=== PATIENT | female | born 1965 | race Caucasian/White ===

== ENCOUNTER 2017-01-07 08:20 | Emergency (ER) | payer MEDICARE, MEDICAID ==
[~2017-01-07] VITALS: Ht 172.7 cm; Wt 58.9 kg
[~2017-01-07 08:20] MED LIST: CLIN300C93 PO; EFAV1TAB PO
[2017-01-07] MEDS ORDERED: FAMOTIDINE 20 MG TABLET PO ONE (09:00)
[2017-01-07] MEDS ORDERED: OXYcodone/APAP 5/325MG TABLET PO ONE (09:00)
[2017-01-07] MEDS ORDERED: DIPHENHYDRAMINE 25 MG CAPSULE PO ONE (09:00)
[2017-01-07] MEDS ORDERED: FAMOTIDINE 20 MG TABLET ONE (09:24)
[2017-01-07] MEDS ORDERED: OXYcodone/APAP 5/325MG TABLET ONE (09:24)
[2017-01-07] MEDS ORDERED: DIPHENHYDRAMINE 50 MG CAPSULE ONE (09:24)
[2017-01-07 11:21] VITALS: BP 112/70
== END 2017-01-07 12:31 | disposition home or self-care (01) ==
LOC: ED 08:57
DX: S90.02XA Contusion of left ankle, initial encounter (principal); S90.01XA Contusion of right ankle, initial encounter; I10 Essential (primary) hypertension; F41.1 Generalized anxiety disorder; F17.210 Nicotine dependence, cigarettes, uncomplicated; F15.10 Other stimulant abuse, uncomplicated; Y04.0XXA Assault by unarmed brawl or fight, initial encounter; Y93.89 Activity, other specified; Y92.828 Other wilderness area as the place of occurrence of the external cause; Y99.8 Other external cause status; Z87.01 Personal history of pneumonia (recurrent); Z59.0 Homelessness
CPT/HCPCS: 70450; 93005

== ENCOUNTER 2017-04-11 14:53 | Emergency (ER) | payer MEDICARE, MEDICAID ==
[~2017-04-11] VITALS: Ht 172.7 cm; Wt 52.0 kg
[2017-04-11 14:58] VITALS: BP 138/76
[2017-04-11] MEDS ORDERED: FAMOTIDINE 20 MG TABLET ONE (15:17)
[2017-04-11] MEDS ORDERED: FAMOTIDINE 20 MG TABLET PO ONE (15:30)
[2017-04-11] MEDS ORDERED: IBUPROFEN 200 MG TABLET ONE (16:18)
[2017-04-11] MEDS ORDERED: IBUPROFEN 200 MG TABLET PO ONE (16:30)
== END 2017-04-11 16:40 | disposition home or self-care (01) ==
LOC: ED 16:00
DX: T78.40XA Allergy, unspecified, initial encounter (principal); R21 Rash and other nonspecific skin eruption; L50.9 Urticaria, unspecified; K08.89 Other specified disorders of teeth and supporting structures; I10 Essential (primary) hypertension; F17.200 Nicotine dependence, unspecified, uncomplicated; X58.XXXA Exposure to other specified factors, initial encounter
CPT/HCPCS: 99284; J7512

== ENCOUNTER 2017-04-19 17:46 | Emergency (ER) | payer MEDICARE, MEDICAID ==
[~2017-04-19] VITALS: Ht 172.7 cm; Wt 58.4 kg
[~2017-04-19 17:46] MED LIST changes: +CLIN300C8 PO; -CLIN300C93 PO
[2017-04-19 17:59] VITALS: BP 121/80
== END 2017-04-19 19:50 ==
LOC: ED 19:48
DX: S02.5XXA Fracture of tooth (traumatic), initial encounter for closed fracture (principal); L25.9 Unspecified contact dermatitis, unspecified cause; I10 Essential (primary) hypertension; X58.XXXA Exposure to other specified factors, initial encounter; Y93.89 Activity, other specified; Y92.89 Other specified places as the place of occurrence of the external cause; Y99.8 Other external cause status
CPT/HCPCS: 99283

== ENCOUNTER 2017-09-02 17:52 | Inpatient (IN) | payer MEDICARE, MEDICAID ==
[~2017-09-02] VITALS: Ht 170.2 cm; Wt 54.7 kg
[2017-09-02] MEDS ORDERED: SODIUM CHLORIDE FLUSH 10ML SYR IVF ONE (18:30)
[2017-09-02] MEDS ORDERED: SODIUM CHLORIDE 0.9% 1,000ML IVBOLUS ONE ×2 (18:30→19:00)
[2017-09-02 18:39] LABS: RAPID INFLUENZA A Negative (Negative); RAPID INFLUENZA B Negative (Negative)
[2017-09-02 18:56] LABS: MEAN CORPUSCULAR HEMOGLOBIN 28.1 pg (27.0-34.8); MEAN CORPUSCULAR HGB CONC 33.5 g/dL (32.4-35.8); MEAN PLATELET VOLUME 7.4 fL (7.4-10.4); PLATELET COUNT 388 x10^3/uL (130-400); RED BLOOD COUNT 4.53 x10^6/uL (3.82-5.3); RED CELL DISTRIBUTION WIDTH 12.1 % (9.6-15.2)
[2017-09-02] MEDS ORDERED: ALBUTEROL SULFATE 2.5 MG/3 ML NPPB ONE (19:00)
[2017-09-02] MEDS ORDERED: AZITHROMYCIN 500 MG in SODIUM CHLORIDE 0.9% 250 ML IV ONE (19:00)
[2017-09-02] MEDS ORDERED: CEFTRIAXONE PMX 1GM/50ML 50 ML IVPB ONE (19:00)
[2017-09-02] MEDS ORDERED: MORPHINE SULFATE 4 MG/ML, 1ML IVPush PRN (19:00)
[2017-09-02 19:06] LABS: ALBUMIN 2.1 g/dL (3.4-5.0); ANION GAP 8 mmol/L (5-15); CALCIUM 8.2 mg/dL (8.5-10.1); CHLORIDE 95 mmol/L (98-107); CREATININE 0.63 mg/dL (0.55-1.02)
[2017-09-02] MEDS ORDERED: ALBUTEROL SULFATE 2.5 MG/3 ML ONE (19:12)
[2017-09-02] MEDS ORDERED: CEFTRIAXONE PMX 1GM/50ML 50 ML ONE (19:13)
[2017-09-02] MEDS ORDERED: MORPHINE SULFATE 4 MG/ML, 1ML ONE (19:14)
[2017-09-02] MEDS ORDERED: ONDANSETRON 2MG/ML, 2ML ONE (19:24)
[2017-09-02 19:25] LABS: BASOPHILS # (AUTO) 0.08 x10^3/uL (0-0.1); BASOPHILS % (AUTO) 0 % (0-1); EOSINOPHILS # (AUTO) 0.04 x10^3/uL (0-0.4); EOSINOPHILS % (AUTO) 0 % (1-7); LYMPHOCYTES # (AUTO) 0.82 x10^3/uL (1-3.4); LYMPHOCYTES % (AUTO) 3 % (22-44); MD MORPH REVIEW ONLY; MONOCYTES # (AUTO) 1.43 x10^3/uL (0.2-0.8); MONOCYTES % (AUTO) 6 % (2-9); NEUTROPHILS # (AUTO) 22.91 x10^3/uL (1.8-6.8); NEUTROPHILS % (AUTO) 91 % (42-75)
[2017-09-02 19:26] LABS: <RBC MORPHOLOGY> NORMAL; PMNS WITH VACUOLES 1+; TOXIC GRAN 2+
[2017-09-02 19:27] LABS: <PLATELET ESTIMATE> ADEQUATE; <PLT MORPHOLOGY> NORMAL PLT MORPH
[2017-09-02] MEDS ORDERED: ONDANSETRON 2MG/ML, 2ML IVPush ONE (19:30)
[2017-09-02] MEDS ORDERED: POTASSIUM CHLORIDE 20 MEQ in SODIUM CHLORIDE 0.9% 250 ML IV ONE (19:30)
[2017-09-02] MEDS ORDERED: POTASSIUM CHLORIDE 20 MEQ TAB.ER.PRT PO ONE ×3 (19:30→23:30)
[2017-09-02] MEDS ORDERED: SODIUM CHLORIDE 0.9% 1,000 ML IV ONE (19:40)
[2017-09-02] MEDS ORDERED: POTASSIUM CHLORIDE 20 MEQ TAB.ER.PRT ONE (19:50)
[2017-09-02] MEDS ORDERED: ONDANSETRON 2MG/ML, 2ML IVPush PRN (20:00)
[2017-09-02] MEDS ORDERED: LABETALOL 5MG/ML, 20ML IVPush PRN (21:00)
[2017-09-02] MEDS ORDERED: ACETAMINOPHEN 325 MG TABLET PO PRN (21:00)
[2017-09-02 22:00] VITALS: BP 104/54
[2017-09-02] MEDS ORDERED: VANCOMYCIN PER PHARMACY MC PRN (23:00)
[2017-09-02] MEDS ORDERED: KETOROLAC 30 MG/1 ML IVPush SCH (23:30)
[2017-09-02] MEDS ORDERED: VANCOMYCIN PMX 1GM/200ML 200 ML IV ONE (23:30)
[2017-09-03] MEDS: ENOXAPARIN 40 MG/0.4 ML SQ SCH ×2 (01:05→21:33)
[2017-09-03] MEDS: ONDANSETRON ODT 4 MG PO PRN ×3 (01:05→21:51)
[2017-09-03] MEDS: MORPHINE SULFATE 4 MG/ML, 1ML IVPush PRN ×2 (01:05→08:54)
[2017-09-03] MEDS ORDERED: OMNIPAQUE 350 MG/ML, 75ML BOTTLE ONE (01:34)
[2017-09-03] MEDS: PIPERACILLIN/TAZO/PMX 3.375GM 50 ML IV SCH ×4 (01:56→21:33)
[2017-09-03] MEDS: SODIUM CHLORIDE 0.9% 1,000 ML IV SCH (01:57)
[2017-09-03] MEDS ORDERED: POTASSIUM CHLORIDE 20 MEQ TAB.ER.PRT PO ONE ×2 (02:00→07:30)
[2017-09-03 02:30] VITALS: BP 98/53
[2017-09-03] MEDS: KETOROLAC 30 MG/1 ML IVPush PRN (04:22)
[2017-09-03] MEDS ORDERED: KETOROLAC 30 MG/1 ML IVPush PRN (05:30)
[2017-09-03] MEDS: GUAIFENESIN 200 MG TABLET PO SCH ×4 (06:04→21:34)
[2017-09-03 06:16] LABS: MEAN CORPUSCULAR HEMOGLOBIN 28.5 pg (27.0-34.8); MEAN CORPUSCULAR HGB CONC 33.8 g/dL (32.4-35.8); MEAN CORPUSCULAR VOLUME 84.4 fL (80-100); MEAN PLATELET VOLUME 7.5 fL (7.4-10.4); PLATELET COUNT 395 x10^3/uL (130-400); RED CELL DISTRIBUTION WIDTH 12.8 % (9.6-15.2)
[2017-09-03 06:17] LABS: ANION GAP 10 mmol/L (5-15); CALCIUM 7.9 mg/dL (8.5-10.1); CHLORIDE 99 mmol/L (98-107); CREATININE 0.72 mg/dL (0.55-1.02)
[2017-09-03 06:43] LABS: MD YES
[2017-09-03 06:45] LABS: <RBC MORPHOLOGY> NORMAL; BAND#(MANUAL) 2.89 x10^3/uL; BANDS%(MANUAL) 11 % (0-7); EOS#(MANUAL) 0.53 x10^3/uL (0.0-0.4); EOS% (MANUAL) 2 % (1-7); LYMPH#(MANUAL) 0.79 x10^3/uL (1-3.4); LYMPHS% (MANUAL) 3 % (22-44); MONOS% (MANUAL) 8 % (2-9)
[2017-09-03 06:48] LABS: <PLATELET ESTIMATE> ADEQUATE; <PLT MORPHOLOGY> NORMAL PLT MORPH; PELGER-HUET CELLS 1+; TOXIC GRAN 2+
[2017-09-03 06:49] LABS: METAMYELOCYTES# (MANUAL) 0.26 x10^3/uL (0-0); METAMYELOCYTES% (MANUAL) 1 % (0-1); SEGS% (MANUAL) 75 % (42-75)
[2017-09-03 07:24] VITALS: BP 98/68
[2017-09-03 08:37] LABS: PROTHROMBIN TIME 10.4 Seconds (9.6-11.5)
[2017-09-03] MEDS ORDERED: EFAVIRENZ/EMTRICITAB/TENOFOVIR 600MG-200MG-300MG TABLET PO SCH (09:00)
[2017-09-03] MEDS ORDERED: PHARMACOKINETIC CONSULTATION MC ONE (12:00)
[2017-09-03] MEDS ORDERED: PHARMACOKINETIC MONITORING MC PRN (12:00)
[2017-09-03 14:00] VITALS: BP 101/64
[2017-09-03 14:11] LABS: AMPHETAMINE SCREEN, URINE Positive (Negative); BARBITURATE SCREEN, URINE Negative (Negative); BENZODIAZEPINE SCREEN, URINE Negative (Negative); CANNABINOID SCREEN, URINE Negative (Negative); COCAINE SCREEN, URINE Negative (Negative); METHADONE SCREEN, URINE Negative (Negative); OPIATE SCREEN, URINE Positive (Negative)
[2017-09-03 14:17] LABS: CULTURE INDICATED? YES; MICROSCOPIC INDICATED
[2017-09-03] MEDS: VANCOMYCIN PMX 1GM/200ML 200 ML IVPB SCH (16:10)
[2017-09-03] MEDS ORDERED: AZITHROMYCIN 500 MG in SODIUM CHLORIDE 0.9% 250 ML IV SCH (19:00)
[2017-09-03] MEDS ORDERED: CEFTRIAXONE PMX 1GM/50ML 50 ML IV SCH (19:00)
[2017-09-03 20:37] VITALS: BP 131/71
[2017-09-03] MEDS: DOXYCYCLINE 100MG TABLET PO SCH (21:34)
[2017-09-04] MEDS: PIPERACILLIN/TAZO/PMX 3.375GM 50 ML IV SCH ×4 (02:27→20:44)
[2017-09-04] MEDS: VANCOMYCIN PMX 1GM/200ML 200 ML IVPB SCH ×2 (04:23→21:30)
[2017-09-04] MEDS: GUAIFENESIN 200 MG TABLET PO SCH ×4 (06:00→20:48)
[2017-09-04 07:30] LABS: ALANINE AMINOTRANSFERASE 27 U/L (12-78); ALBUMIN 1.8 g/dL (3.4-5.0); ANION GAP 9 mmol/L (5-15); CALCIUM 8.1 mg/dL (8.5-10.1); CHLORIDE 102 mmol/L (98-107)
[2017-09-04 07:56] LABS: MEAN CORPUSCULAR HEMOGLOBIN 28.2 pg (27.0-34.8); MEAN CORPUSCULAR HGB CONC 33.4 g/dL (32.4-35.8); MEAN CORPUSCULAR VOLUME 84.2 fL (80-100); MEAN PLATELET VOLUME 6.8 fL (7.4-10.4); PLATELET COUNT 456 x10^3/uL (130-400); RED BLOOD COUNT 4.32 x10^6/uL (3.82-5.3); RED CELL DISTRIBUTION WIDTH 12.7 % (9.6-15.2)
[2017-09-04 08:03] LABS: ALKALINE PHOSPHATASE 206 U/L (45-117); BILIRUBIN,TOTAL 0.8 mg/dL (0.2-1.0); CREATININE 0.54 mg/dL (0.55-1.02); TOTAL PROTEIN 5.6 g/dL (6.4-8.2)
[2017-09-04 08:09] LABS: MD YES
[2017-09-04 08:13] LABS: <PLATELET ESTIMATE> ADEQUATE; <PLT MORPHOLOGY> NORMAL PLT MORPH; <RBC MORPHOLOGY> NORMAL; BAND#(MANUAL) 2.13 x10^3/uL; BANDS%(MANUAL) 6 % (0-7); LYMPH#(MANUAL) 2.84 x10^3/uL (1-3.4); LYMPHS% (MANUAL) 8 % (22-44); MONOS#(MANUAL) 0.71 x10^3/uL (0.3-2.7); MONOS% (MANUAL) 2 % (2-9); SEG#(MANUAL) 29.82 x10^3/uL (1.8-6.8); SEGS% (MANUAL) 84 % (42-75)
[2017-09-04 08:14] LABS: TOXIC GRAN 2+
[2017-09-04 08:56] VITALS: BP 149/82
[2017-09-04] MEDS: DOXYCYCLINE 100MG TABLET PO SCH ×2 (09:30→20:28)
[2017-09-04] MEDS ORDERED: SUCCINYLCHOLINE 20 MG/ML, 10ML ONE (12:04)
[2017-09-04] MEDS ORDERED: LIDOCAINE-MPF 2% ,5ML ONE ×2 (12:04)
[2017-09-04] MEDS ORDERED: PROPOFOL 10 MG/ML, 20ML ONE (12:04)
[2017-09-04] MEDS ORDERED: ROCURONIUM 10 MG/ML,10ML ONE (12:05)
[2017-09-04] MEDS ORDERED: KETAMINE 10 MG/ML, 20ML ONE (12:08)
[2017-09-04] MEDS ORDERED: MIDAZOLAM 1 MG/ML, 2ML ONE (12:09)
[2017-09-04] MEDS ORDERED: FENTANYL PF 250 MCG/5ML ONE (12:09)
[2017-09-04] MEDS ORDERED: BUPIVACAINE/PF 0.5% ONE (12:52)
[2017-09-04] MEDS ORDERED: EPINEPHRINE 1 MG/ML, 1ML ONE (12:52)
[2017-09-04] MEDS ORDERED: PHENYLEPHRINE 10 MG/ML ONE (13:31)
[2017-09-04] MEDS ORDERED: ONDANSETRON 2MG/ML, 2ML ONE (13:31)
[2017-09-04] MEDS ORDERED: BUPIVACAINE/PF-EPI 0.5% 1:200K IM ONE (14:40)
[2017-09-04] MEDS ORDERED: PROPOFOL 100 ML IV ONE (16:48)
[2017-09-04] MEDS: MORPHINE SULFATE 4 MG/ML, 1ML IVPush PRN ×2 (19:46→22:19)
[2017-09-04] MEDS ORDERED: NOREPINEPHRINE 4 MG in SODIUM CHLORIDE 0.9% 246 ML IV PRN (20:12)
[2017-09-04] MEDS: ENOXAPARIN 40 MG/0.4 ML SQ SCH (20:29)
[2017-09-04] MEDS ORDERED: RISPERIDONE 0.5 MG TABLET NG PRN (20:30)
[2017-09-04] MEDS ORDERED: SODIUM CHLORIDE 0.9% 1,000ML IVBOLUS ONE ×2 (20:30)
[2017-09-04] MEDS ORDERED: PHARMACY MAY ADJ FOR RENAL FX MC SCH (20:30)
[2017-09-04] MEDS ORDERED: SENNOSIDES 8.8 MG/5 ML ORAL SOL NG PRN (20:30)
[2017-09-04] MEDS ORDERED: BISACODYL 10 MG SUPP PR PRN (20:30)
[2017-09-04] MEDS ORDERED: LACTULOSE 20 GM/30 ML UDC NG PRN (20:30)
[2017-09-04] MEDS ORDERED: LIDOCAINE-MPF 1%, 2ML ENDO PRN (20:30)
[2017-09-04] MEDS: FAMOTIDINE 20 MG/2 ML IV SCH (20:44)
[2017-09-04] MEDS: SODIUM CHLORIDE 0.9% 1,000 ML IV SCH (20:48)
[2017-09-04] MEDS: PROPOFOL 100 ML IV PRN (22:19)
[2017-09-05] MEDS: PIPERACILLIN/TAZO/PMX 3.375GM 50 ML IV SCH ×4 (02:31→21:00)
[2017-09-05 03:39] LABS: MEAN CORPUSCULAR HEMOGLOBIN 28.1 pg (27.0-34.8); MEAN CORPUSCULAR HGB CONC 33.2 g/dL (32.4-35.8); MEAN CORPUSCULAR VOLUME 84.6 fL (80-100); MEAN PLATELET VOLUME 6.9 fL (7.4-10.4); PLATELET COUNT 418 x10^3/uL (130-400); RED BLOOD COUNT 3.38 x10^6/uL (3.82-5.3); RED CELL DISTRIBUTION WIDTH 12.9 % (9.6-15.2)
[2017-09-05 03:47] LABS: ALANINE AMINOTRANSFERASE 20 U/L (12-78); ALBUMIN 1.1 g/dL (3.4-5.0); ANION GAP 10 mmol/L (5-15); CALCIUM 6.8 mg/dL (8.5-10.1); CHLORIDE 109 mmol/L (98-107); CREATININE 0.35 mg/dL (0.55-1.02)
[2017-09-05 03:50] LABS: ALKALINE PHOSPHATASE 140 U/L (45-117); BILIRUBIN,TOTAL 0.5 mg/dL (0.2-1.0); TOTAL PROTEIN 4.2 g/dL (6.4-8.2)
[2017-09-05] MEDS: GUAIFENESIN 200 MG TABLET PO SCH ×4 (03:52→20:00)
[2017-09-05] MEDS ORDERED: POTASSIUM CHLORIDE 40 MEQ in SODIUM CHLORIDE 0.9% 100 ML IV ONE (04:00)
[2017-09-05] MEDS ORDERED: MAGNESIUM SULFATE PMX 2GM/50ML 50 ML IV ONE ×2 (04:00→07:30)
[2017-09-05] MEDS: MORPHINE SULFATE 4 MG/ML, 1ML IVPush PRN ×4 (04:06→19:59)
[2017-09-05] MEDS: PROPOFOL 100 ML IV PRN ×4 (04:08→23:45)
[2017-09-05 04:13] LABS: MD YES
[2017-09-05 04:15] LABS: <RBC MORPHOLOGY> NORMAL; BAND#(MANUAL) 0.61 x10^3/uL; BANDS%(MANUAL) 2 % (0-7); LYMPH#(MANUAL) 1.52 x10^3/uL (1-3.4); LYMPHS% (MANUAL) 5 % (22-44); MONOS#(MANUAL) 1.82 x10^3/uL (0.3-2.7); MONOS% (MANUAL) 6 % (2-9); SEGS% (MANUAL) 87 % (42-75)
[2017-09-05 04:16] VITALS: BP 89/52
[2017-09-05 04:16] LABS: TOXIC GRAN 2+
[2017-09-05 04:18] LABS: <PLATELET ESTIMATE> INCREASED; <PLT MORPHOLOGY> NORMAL PLT MORPH
[2017-09-05] MEDS: ACETAMINOPHEN 650 MG/20.3 ML UDC PO PRN ×2 (08:21→15:21)
[2017-09-05] MEDS: QUETIAPINE 25MG TABLET NG SCH ×2 (08:37→17:09)
[2017-09-05] MEDS: FAMOTIDINE 20 MG/2 ML IV SCH ×2 (08:37→19:59)
[2017-09-05] MEDS: DOXYCYCLINE 100MG TABLET PO SCH ×2 (08:44→20:00)
[2017-09-05] MEDS ORDERED: POTASSIUM CHLORIDE 10% 40 MEQ/30 ML UDC PO SCH (09:00)
[2017-09-05] MEDS ORDERED: EFAVIRENZ/EMTRICITAB/TENOFOVIR 600MG-200MG-300MG TABLET PO SCH (09:00)
[2017-09-05] MEDS: VANCOMYCIN PMX 1GM/200ML 200 ML IVPB SCH ×3 (10:26→23:48)
[2017-09-05] MEDS: SODIUM CHLORIDE 0.9% 1,000 ML IV SCH (15:00)
[2017-09-05] MEDS: ENOXAPARIN 40 MG/0.4 ML SQ SCH (19:59)
[2017-09-06] MEDS: MORPHINE SULFATE 4 MG/ML, 1ML IVPush PRN ×3 (00:01→23:09)
[2017-09-06] MEDS: QUETIAPINE 25MG TABLET NG SCH ×3 (01:08→17:20)
[2017-09-06] MEDS: PIPERACILLIN/TAZO/PMX 3.375GM 50 ML IV SCH ×2 (03:13→09:41)
[2017-09-06 03:57] LABS: MEAN CORPUSCULAR HEMOGLOBIN 28.1 pg (27.0-34.8); MEAN CORPUSCULAR HGB CONC 33.5 g/dL (32.4-35.8); MEAN CORPUSCULAR VOLUME 83.8 fL (80-100); MEAN PLATELET VOLUME 6.7 fL (7.4-10.4); PLATELET COUNT 432 x10^3/uL (130-400); RED BLOOD COUNT 3.25 x10^6/uL (3.82-5.3); RED CELL DISTRIBUTION WIDTH 13.3 % (9.6-15.2)
[2017-09-06 04:09] LABS: ANION GAP 6 mmol/L (5-15); CALCIUM 7.1 mg/dL (8.5-10.1); CHLORIDE 111 mmol/L (98-107); CREATININE 0.37 mg/dL (0.55-1.02)
[2017-09-06] MEDS: ACETAMINOPHEN 650 MG/20.3 ML UDC PO PRN (04:28)
[2017-09-06 04:41] LABS: BASOPHILS # (AUTO) 0.07 x10^3/uL (0-0.1); BASOPHILS % (AUTO) 0 % (0-1); EOSINOPHILS % (AUTO) 1 % (1-7); LYMPHOCYTES # (AUTO) 1.09 x10^3/uL (1-3.4); LYMPHOCYTES % (AUTO) 4 % (22-44); MD SCAN; MONOCYTES # (AUTO) 0.65 x10^3/uL (0.2-0.8); MONOCYTES % (AUTO) 2 % (2-9); NEUTROPHILS # (AUTO) 25.64 x10^3/uL (1.8-6.8); NEUTROPHILS % (AUTO) 93 % (42-75)
[2017-09-06 04:42] VITALS: BP 99/59
[2017-09-06] MEDS: PROPOFOL 100 ML IV PRN ×4 (05:06→20:47)
[2017-09-06] MEDS: SODIUM CHLORIDE 0.9% 1,000 ML IV SCH ×3 (05:07→20:20)
[2017-09-06] MEDS: GUAIFENESIN 200 MG TABLET PO SCH ×4 (05:08→20:20)
[2017-09-06] MEDS: VANCOMYCIN PMX 1GM/200ML 200 ML IVPB SCH (08:10)
[2017-09-06] MEDS: DOXYCYCLINE 100MG TABLET PO SCH (08:46)
[2017-09-06] MEDS: FAMOTIDINE 20 MG/2 ML IV SCH ×2 (08:46→20:20)
[2017-09-06] MEDS: POTASSIUM CHLORIDE 10% 40 MEQ/30 ML UDC PO SCH ×2 (08:46→20:20)
[2017-09-06] MEDS: EFAVIRENZ/EMTRICITAB/TENOFOVIR 600MG-200MG-300MG TABLET PO SCH (09:41)
[2017-09-06] MEDS: CEFAZOLIN PMX 2GM/50ML 50 ML IV SCH ×2 (13:14→20:42)
[2017-09-06] MEDS: FENTANYL PF 100 MCG/2ML IVPush PRN (15:08)
[2017-09-06] MEDS: ENOXAPARIN 40 MG/0.4 ML SQ SCH (20:20)
[2017-09-07] MEDS: QUETIAPINE 25MG TABLET NG SCH ×3 (01:04→17:19)
[2017-09-07] MEDS: ACETAMINOPHEN 650 MG/20.3 ML UDC PO PRN ×2 (04:20→12:16)
[2017-09-07] MEDS: MORPHINE SULFATE 4 MG/ML, 1ML IVPush PRN ×2 (04:20→12:17)
[2017-09-07] MEDS: CEFAZOLIN PMX 2GM/50ML 50 ML IV SCH ×2 (04:35→13:21)
[2017-09-07 04:36] VITALS: BP 101/53
[2017-09-07 05:04] LABS: MEAN CORPUSCULAR HEMOGLOBIN 28.9 pg (27.0-34.8); MEAN CORPUSCULAR HGB CONC 34.6 g/dL (32.4-35.8); MEAN CORPUSCULAR VOLUME 83.6 fL (80-100); MEAN PLATELET VOLUME 6.5 fL (7.4-10.4); PLATELET COUNT 413 x10^3/uL (130-400); RED BLOOD COUNT 3.04 x10^6/uL (3.82-5.3); RED CELL DISTRIBUTION WIDTH 13.2 % (9.6-15.2)
[2017-09-07 05:14] LABS: CHLORIDE 112 mmol/L (98-107)
[2017-09-07 05:19] LABS: ANION GAP 6 mmol/L (5-15); CALCIUM 7.2 mg/dL (8.5-10.1); CREATININE 0.41 mg/dL (0.55-1.02); TRIGLYCERIDES 152 mg/dL (50-200)
[2017-09-07 05:35] LABS: MD YES
[2017-09-07 05:37] LABS: <PLATELET ESTIMATE> ADEQUATE; <PLT MORPHOLOGY> NORMAL PLT MORPH; <RBC MORPHOLOGY> NORMAL; BAND#(MANUAL) 1.38 x10^3/uL; BANDS%(MANUAL) 6 % (0-7); EOS#(MANUAL) 0.23 x10^3/uL (0.0-0.4); EOS% (MANUAL) 1 % (1-7); LYMPH#(MANUAL) 1.84 x10^3/uL (1-3.4); LYMPHS% (MANUAL) 8 % (22-44); MONOS#(MANUAL) 0.69 x10^3/uL (0.3-2.7); MONOS% (MANUAL) 3 % (2-9); MYELOCYTES# (MANUAL) 0.23 x10^3/uL (0-0); MYELOCYTES% (MANUAL) 1 % (0-0); SEG#(MANUAL) 18.63 x10^3/uL (1.8-6.8); SEGS% (MANUAL) 81 % (42-75); TOXIC GRAN 1+
[2017-09-07] MEDS: GUAIFENESIN 200 MG TABLET PO SCH ×4 (05:39→20:28)
[2017-09-07] MEDS: PROPOFOL 100 ML IV PRN ×3 (06:39→17:46)
[2017-09-07] MEDS: EFAVIRENZ/EMTRICITAB/TENOFOVIR 600MG-200MG-300MG TABLET PO SCH (08:33)
[2017-09-07] MEDS: FAMOTIDINE 20 MG/2 ML IV SCH ×2 (08:33→20:28)
[2017-09-07] MEDS ORDERED: MAGNESIUM SULFATE PMX 2GM/50ML 50 ML IV ONE (10:30)
[2017-09-07] MEDS: ENOXAPARIN 40 MG/0.4 ML SQ SCH (20:28)
[2017-09-07] MEDS: CEFAZOLIN 2,000 MG in SODIUM CHLORIDE 0.9% 50 ML IV SCH (21:00)
[2017-09-07] MEDS: SENNA/DOCUSATE TABLET NG PRN (23:52)
[2017-09-07] MEDS: KETOROLAC 30 MG/1 ML IVPush PRN (23:52)
[2017-09-08] MEDS: QUETIAPINE 25MG TABLET NG SCH ×3 (01:17→16:15)
[2017-09-08] MEDS: PROPOFOL 100 ML IV PRN ×5 (01:57→20:49)
[2017-09-08 04:04] VITALS: BP 117/62
[2017-09-08] MEDS: CEFAZOLIN 2,000 MG in SODIUM CHLORIDE 0.9% 50 ML IV SCH ×3 (04:41→20:25)
[2017-09-08 04:56] LABS: MEAN CORPUSCULAR HEMOGLOBIN 28.1 pg (27.0-34.8); MEAN CORPUSCULAR HGB CONC 33.5 g/dL (32.4-35.8); MEAN CORPUSCULAR VOLUME 83.7 fL (80-100); MEAN PLATELET VOLUME 6.7 fL (7.4-10.4); PLATELET COUNT 416 x10^3/uL (130-400); RED BLOOD COUNT 2.92 x10^6/uL (3.82-5.3); RED CELL DISTRIBUTION WIDTH 13.4 % (9.6-15.2)
[2017-09-08 05:05] LABS: ANION GAP 7 mmol/L (5-15); CALCIUM 6.7 mg/dL (8.5-10.1); CHLORIDE 111 mmol/L (98-107); CREATININE 0.35 mg/dL (0.55-1.02)
[2017-09-08 05:44] LABS: MD YES
[2017-09-08 05:45] LABS: BAND#(MANUAL) 1.09 x10^3/uL; BANDS%(MANUAL) 5 % (0-7); LYMPH#(MANUAL) 0.44 x10^3/uL (1-3.4); LYMPHS% (MANUAL) 2 % (22-44); MONOS#(MANUAL) 0.44 x10^3/uL (0.3-2.7); MONOS% (MANUAL) 2 % (2-9); MYELOCYTES# (MANUAL) 0.44 x10^3/uL (0-0); MYELOCYTES% (MANUAL) 2 % (0-0); SEGS% (MANUAL) 89 % (42-75)
[2017-09-08 05:46] LABS: <PLATELET ESTIMATE> ADEQUATE; <PLT MORPHOLOGY> NORMAL PLT MORPH; <RBC MORPHOLOGY> NORMAL
[2017-09-08 05:47] LABS: TOXIC GRAN 1+
[2017-09-08] MEDS: GUAIFENESIN 200 MG TABLET PO SCH ×4 (06:01→20:24)
[2017-09-08] MEDS: ACETAMINOPHEN 650 MG/20.3 ML UDC PO PRN ×3 (06:02→22:28)
[2017-09-08] MEDS: EFAVIRENZ/EMTRICITAB/TENOFOVIR 600MG-200MG-300MG TABLET PO SCH (08:03)
[2017-09-08] MEDS: FAMOTIDINE 20 MG/2 ML IV SCH ×2 (08:03→20:49)
[2017-09-08] MEDS: POTASSIUM CHLORIDE 10% 40 MEQ/30 ML UDC PO SCH ×2 (08:03→20:25)
[2017-09-08] MEDS: FENTANYL PF 100 MCG/2ML IVPush PRN ×3 (08:04→22:28)
[2017-09-08] MEDS ORDERED: MIDAZOLAM HCL 25 MG in SODIUM CHLORIDE 0.9% 245 ML IV PRN (08:30)
[2017-09-08] MEDS: MIDAZOLAM HCL 50 MG in SODIUM CHLORIDE 0.9% 240 ML IV PRN (16:15)
[2017-09-08] MEDS: ENOXAPARIN 40 MG/0.4 ML SQ SCH (20:24)
[2017-09-09] MEDS: QUETIAPINE 25MG TABLET NG SCH (00:42)
[2017-09-09] MEDS: FENTANYL PF 100 MCG/2ML IVPush PRN ×4 (00:59→21:16)
[2017-09-09] MEDS: PROPOFOL 100 ML IV PRN ×4 (02:59→21:00)
[2017-09-09] MEDS: ACETAMINOPHEN 650 MG/20.3 ML UDC PO PRN ×2 (04:04→15:11)
[2017-09-09 04:23] VITALS: BP 129/76
[2017-09-09] MEDS: CEFAZOLIN 2,000 MG in SODIUM CHLORIDE 0.9% 50 ML IV SCH ×3 (05:12→21:23)
[2017-09-09 06:05] LABS: MEAN CORPUSCULAR HEMOGLOBIN 27.9 pg (27.0-34.8); MEAN CORPUSCULAR HGB CONC 33.7 g/dL (32.4-35.8); MEAN CORPUSCULAR VOLUME 82.8 fL (80-100); MEAN PLATELET VOLUME 6.7 fL (7.4-10.4); PLATELET COUNT 429 x10^3/uL (130-400); RED BLOOD COUNT 2.77 x10^6/uL (3.82-5.3); RED CELL DISTRIBUTION WIDTH 13.2 % (9.6-15.2)
[2017-09-09 06:19] LABS: ANION GAP 7 mmol/L (5-15); CALCIUM 6.9 mg/dL (8.5-10.1); CHLORIDE 111 mmol/L (98-107)
[2017-09-09 06:20] LABS: CREATININE 0.35 mg/dL (0.55-1.02)
[2017-09-09] MEDS: GUAIFENESIN 200 MG TABLET PO SCH ×4 (06:27→21:09)
[2017-09-09] MEDS: MIDAZOLAM HCL 50 MG in SODIUM CHLORIDE 0.9% 240 ML IV PRN (06:27)
[2017-09-09 06:31] LABS: BASOPHILS # (AUTO) 0.01 x10^3/uL (0-0.1); BASOPHILS % (AUTO) 0 % (0-1); EOSINOPHILS # (AUTO) 0.04 x10^3/uL (0-0.4); EOSINOPHILS % (AUTO) 0 % (1-7); LYMPHOCYTES # (AUTO) 0.85 x10^3/uL (1-3.4); LYMPHOCYTES % (AUTO) 5 % (22-44); MD SCAN; MONOCYTES # (AUTO) 0.67 x10^3/uL (0.2-0.8); MONOCYTES % (AUTO) 4 % (2-9); NEUTROPHILS # (AUTO) 14.55 x10^3/uL (1.8-6.8); NEUTROPHILS % (AUTO) 90 % (42-75)
[2017-09-09] MEDS: FAMOTIDINE 20 MG/2 ML IV SCH ×2 (08:30→21:09)
[2017-09-09] MEDS: EFAVIRENZ/EMTRICITAB/TENOFOVIR 600MG-200MG-300MG TABLET PO SCH (09:00)
[2017-09-09] MEDS: QUETIAPINE 100MG TABLET NG SCH (16:39)
[2017-09-09] MEDS ORDERED: ADENOSINE 6 MG/2 ML ONE (19:16)
[2017-09-09] MEDS ORDERED: ADENOSINE 6 MG/2 ML IVPush ONE (19:30)
[2017-09-09 20:02] LABS: TROPONIN I < 0.015 ng/mL (0.000-0.045)
[2017-09-09] MEDS: ENOXAPARIN 40 MG/0.4 ML SQ SCH (21:09)
[2017-09-09] MEDS: ALBUTEROL SULFATE 2.5 MG/3 ML NPPB PRN (22:30)
[2017-09-09] MEDS: ACETYLCYSTEINE 20%, 4ML NPPB SCH (22:30)
[2017-09-10] MEDS: ACETAMINOPHEN 650 MG/20.3 ML UDC PO PRN ×3 (01:47→21:29)
[2017-09-10] MEDS: QUETIAPINE 100MG TABLET NG SCH ×2 (01:47→09:12)
[2017-09-10] MEDS: MIDAZOLAM HCL 50 MG in SODIUM CHLORIDE 0.9% 240 ML IV PRN (01:54)
[2017-09-10] MEDS: ALBUTEROL SULFATE 2.5 MG/3 ML NPPB PRN ×4 (02:40→20:26)
[2017-09-10] MEDS: ACETYLCYSTEINE 20%, 4ML NPPB SCH ×4 (02:40→20:26)
[2017-09-10] MEDS ORDERED: ADENOSINE 6 MG/2 ML ONE ×2 (02:50→02:53)
[2017-09-10] MEDS ORDERED: ADENOSINE 6 MG/2 ML IVPush ONE (03:30)
[2017-09-10] MEDS ORDERED: AMIODARONE 900 MG in DEXTROSE 5% 482 ML IV PRN (03:30)
[2017-09-10] MEDS ORDERED: FILTER 0.22 MICRON IV PRN (03:30)
[2017-09-10] MEDS ORDERED: AMIODARONE 150 MG in DEXTROSE 5% 100 ML IV ONE (03:30)
[2017-09-10] MEDS: PROPOFOL 100 ML IV PRN ×3 (03:40→21:02)
[2017-09-10 04:39] LABS: MEAN CORPUSCULAR HEMOGLOBIN 27.7 pg (27.0-34.8); MEAN CORPUSCULAR HGB CONC 33.2 g/dL (32.4-35.8); MEAN CORPUSCULAR VOLUME 83.2 fL (80-100); MEAN PLATELET VOLUME 6.9 fL (7.4-10.4); PLATELET COUNT 398 x10^3/uL (130-400); RED BLOOD COUNT 2.61 x10^6/uL (3.82-5.3); RED CELL DISTRIBUTION WIDTH 13.3 % (9.6-15.2)
[2017-09-10 04:40] LABS: ANION GAP 7 mmol/L (5-15); CALCIUM 6.9 mg/dL (8.5-10.1); CHLORIDE 107 mmol/L (98-107)
[2017-09-10 04:41] LABS: CREATININE 0.23 mg/dL (0.55-1.02); TRIGLYCERIDES 121 mg/dL (50-200)
[2017-09-10 05:00] VITALS: BP 121/69
[2017-09-10 05:05] LABS: BASOPHILS # (AUTO) 0.01 x10^3/uL (0-0.1); BASOPHILS % (AUTO) 0 % (0-1); EOSINOPHILS # (AUTO) 0.01 x10^3/uL (0-0.4); EOSINOPHILS % (AUTO) 0 % (1-7); LYMPHOCYTES % (AUTO) 6 % (22-44); MD SCAN; MONOCYTES # (AUTO) 0.53 x10^3/uL (0.2-0.8); MONOCYTES % (AUTO) 4 % (2-9); NEUTROPHILS # (AUTO) 11.21 x10^3/uL (1.8-6.8); NEUTROPHILS % (AUTO) 89 % (42-75)
[2017-09-10] MEDS: CEFAZOLIN 2,000 MG in SODIUM CHLORIDE 0.9% 50 ML IV SCH (05:46)
[2017-09-10] MEDS: GUAIFENESIN 200 MG TABLET PO SCH ×2 (06:26→12:08)
[2017-09-10] MEDS ORDERED: MAGNESIUM SULFATE PMX 2GM/50ML 50 ML IV ONE (07:30)
[2017-09-10] MEDS ORDERED: DEXMEDETOMIDINE 1,000 MCG in SODIUM CHLORIDE 0.9% 240 ML IV PRN (08:30)
[2017-09-10 08:59] LABS: MICROSCOPIC INDICATED
[2017-09-10] MEDS: EFAVIRENZ/EMTRICITAB/TENOFOVIR 600MG-200MG-300MG TABLET PO SCH (09:13)
[2017-09-10] MEDS: FAMOTIDINE 20 MG/2 ML IV SCH (09:13)
[2017-09-10] MEDS: POTASSIUM CHLORIDE 10% 40 MEQ/30 ML UDC PO SCH ×2 (09:13→20:30)
[2017-09-10] MEDS: FENTANYL PF 100 MCG/2ML IVPush PRN ×2 (10:26→20:21)
[2017-09-10] MEDS ORDERED: MIDAZOLAM 1 MG/ML, 2ML ONE (10:27)
[2017-09-10] MEDS ORDERED: PHARMACOKINETIC CONSULTATION MC ONE (11:00)
[2017-09-10] MEDS ORDERED: PHARMACOKINETIC MONITORING MC PRN (11:00)
[2017-09-10] MEDS ORDERED: VANCOMYCIN PER PHARMACY MC PRN (11:00)
[2017-09-10] MEDS: MEROPENEM 500 MG in SODIUM CHLORIDE 0.9% 100 ML IV SCH ×2 (12:54→20:31)
[2017-09-10] MEDS: VANCOMYCIN 1,300 MG in SODIUM CHLORIDE 0.9% 250 ML IV SCH (13:29)
[2017-09-10] MEDS ORDERED: FAMOTIDINE 40 MG/5 ML ORAL SUSP NG SCH (14:00)
[2017-09-10] MEDS: GUAIFENESIN 100 MG/5 ML, 10ML UDC NG SCH ×2 (16:00→21:00)
[2017-09-10] MEDS ORDERED: PROPOFOL 100 ML IV ONE (16:10)
[2017-09-10] MEDS ORDERED: MIDAZOLAM HCL 50 MG in SODIUM CHLORIDE 0.9% 240 ML IV PRN (19:00)
[2017-09-10] MEDS: ENOXAPARIN 40 MG/0.4 ML SQ SCH (20:30)
[2017-09-10] MEDS: FAMOTIDINE 40 MG/5 ML ORAL SUSP NG SCH (20:58)
[2017-09-11] MEDS: FENTANYL PF 100 MCG/2ML IVPush PRN ×4 (00:13→23:51)
[2017-09-11] MEDS: PROPOFOL 100 ML IV PRN (01:45)
[2017-09-11] MEDS: ALBUTEROL SULFATE 2.5 MG/3 ML NPPB PRN ×3 (02:23→18:49)
[2017-09-11] MEDS: ACETYLCYSTEINE 20%, 4ML NPPB SCH ×2 (02:23→06:59)
[2017-09-11] MEDS: VANCOMYCIN 1,300 MG in SODIUM CHLORIDE 0.9% 250 ML IV SCH ×2 (02:28→14:51)
[2017-09-11 04:42] LABS: MEAN CORPUSCULAR VOLUME 82.4 fL (80-100); MEAN PLATELET VOLUME 7.3 fL (7.4-10.4); PLATELET COUNT 569 x10^3/uL (130-400); RED BLOOD COUNT 2.76 x10^6/uL (3.82-5.3); RED CELL DISTRIBUTION WIDTH 13.2 % (9.6-15.2)
[2017-09-11 04:53] LABS: ANION GAP 7 mmol/L (5-15); CALCIUM 7.1 mg/dL (8.5-10.1); CHLORIDE 106 mmol/L (98-107); CREATININE 0.24 mg/dL (0.55-1.02)
[2017-09-11 04:54] LABS: BASOPHILS # (AUTO) 0.02 x10^3/uL (0-0.1); BASOPHILS % (AUTO) 0 % (0-1); EOSINOPHILS # (AUTO) 0.05 x10^3/uL (0-0.4); EOSINOPHILS % (AUTO) 0 % (1-7); LYMPHOCYTES # (AUTO) 0.84 x10^3/uL (1-3.4); LYMPHOCYTES % (AUTO) 7 % (22-44); MD SCAN; MONOCYTES # (AUTO) 0.52 x10^3/uL (0.2-0.8); MONOCYTES % (AUTO) 5 % (2-9); NEUTROPHILS # (AUTO) 10.15 x10^3/uL (1.8-6.8); NEUTROPHILS % (AUTO) 88 % (42-75)
[2017-09-11 05:00] VITALS: BP 142/87
[2017-09-11] MEDS: MEROPENEM 500 MG in SODIUM CHLORIDE 0.9% 100 ML IV SCH ×3 (06:23→21:43)
[2017-09-11] MEDS: GUAIFENESIN 100 MG/5 ML, 10ML UDC NG SCH ×4 (06:23→21:44)
[2017-09-11] MEDS: FAMOTIDINE 40 MG/5 ML ORAL SUSP NG SCH ×2 (07:50→21:43)
[2017-09-11] MEDS: ACETAMINOPHEN 650 MG/20.3 ML UDC PO PRN ×3 (07:50→19:29)
[2017-09-11] MEDS: EFAVIRENZ/EMTRICITAB/TENOFOVIR 600MG-200MG-300MG TABLET PO SCH (07:50)
[2017-09-11] MEDS: MORPHINE SULFATE 4 MG/ML, 1ML IVPush PRN ×2 (07:51→16:58)
[2017-09-11] MEDS ORDERED: LIDOCAINE 1%, 50ML ONE (08:39)
[2017-09-11] MEDS ORDERED: LIDOCAINE 2%, 2ML ONE (08:40)
[2017-09-11] MEDS: MIDAZOLAM HCL 100 MG in SODIUM CHLORIDE 0.9% 230 ML IV PRN ×2 (08:53→19:16)
[2017-09-11] MEDS: CHOLESTYRAMINE LIGHT 4GM PACKET PO SCH ×2 (11:24→21:43)
[2017-09-11] MEDS: ZIPRASIDONE 20 MG INJ IM PRN ×2 (11:25→21:44)
[2017-09-11] MEDS: ENOXAPARIN 40 MG/0.4 ML SQ SCH (21:43)
[2017-09-12] MEDS: MORPHINE SULFATE 4 MG/ML, 1ML IVPush PRN ×2 (01:54→17:58)
[2017-09-12] MEDS: VANCOMYCIN 1,300 MG in SODIUM CHLORIDE 0.9% 250 ML IV SCH ×2 (02:29→15:19)
[2017-09-12] MEDS: MIDAZOLAM HCL 100 MG in SODIUM CHLORIDE 0.9% 230 ML IV PRN (04:01)
[2017-09-12] MEDS: ACETAMINOPHEN 650 MG/20.3 ML UDC PO PRN (04:01)
[2017-09-12] MEDS: FENTANYL PF 100 MCG/2ML IVPush PRN ×3 (04:01→23:21)
[2017-09-12] MEDS: ZIPRASIDONE 20 MG INJ IM PRN (04:02)
[2017-09-12 04:56] LABS: ANION GAP 6 mmol/L (5-15); CHLORIDE 104 mmol/L (98-107); CREATININE 0.25 mg/dL (0.55-1.02)
[2017-09-12 05:21] LABS: BASOPHILS # (AUTO) 0.03 x10^3/uL (0-0.1); BASOPHILS % (AUTO) 0 % (0-1); EOSINOPHILS # (AUTO) 0.06 x10^3/uL (0-0.4); EOSINOPHILS % (AUTO) 1 % (1-7); LYMPHOCYTES # (AUTO) 1.09 x10^3/uL (1-3.4); LYMPHOCYTES % (AUTO) 10 % (22-44); MD NO; MEAN CORPUSCULAR HEMOGLOBIN 27.5 pg (27.0-34.8); MEAN CORPUSCULAR HGB CONC 33.5 g/dL (32.4-35.8); MEAN CORPUSCULAR VOLUME 82.1 fL (80-100); MEAN PLATELET VOLUME 7.2 fL (7.4-10.4); MONOCYTES # (AUTO) 0.71 x10^3/uL (0.2-0.8); MONOCYTES % (AUTO) 6 % (2-9); NEUTROPHILS # (AUTO) 9.62 x10^3/uL (1.8-6.8); NEUTROPHILS % (AUTO) 84 % (42-75); PLATELET COUNT 455 x10^3/uL (130-400); RED BLOOD COUNT 2.85 x10^6/uL (3.82-5.3)
[2017-09-12] MEDS: MEROPENEM 500 MG in SODIUM CHLORIDE 0.9% 100 ML IV SCH ×3 (05:25→20:46)
[2017-09-12] MEDS: GUAIFENESIN 100 MG/5 ML, 10ML UDC NG SCH ×4 (05:25→21:31)
[2017-09-12 06:23] VITALS: BP 146/76
[2017-09-12] MEDS ORDERED: MIDAZOLAM 1 MG/ML, 5ML IV PRN (08:30)
[2017-09-12] MEDS: FAMOTIDINE 40 MG/5 ML ORAL SUSP NG SCH ×2 (09:00→20:44)
[2017-09-12] MEDS: EFAVIRENZ/EMTRICITAB/TENOFOVIR 600MG-200MG-300MG TABLET PO SCH (09:00)
[2017-09-12] MEDS: CHOLESTYRAMINE LIGHT 4GM PACKET PO SCH ×2 (09:00→20:34)
[2017-09-12] MEDS: ZIPRASIDONE 20MG CAPSULE NG SCH ×2 (10:34→20:44)
[2017-09-12] MEDS ORDERED: MAGNESIUM SULFATE PMX 2GM/50ML 50 ML IV ONE (14:00)
[2017-09-12] MEDS ORDERED: TRIAMCINOLONE CRM 0.5%, 15GM TP PRN (16:00)
[2017-09-12] MEDS: ONDANSETRON ODT 4 MG PO PRN (20:40)
[2017-09-12] MEDS: ENOXAPARIN 40 MG/0.4 ML SQ SCH (20:44)
[2017-09-12] MEDS: DIPHENHYDRAMINE 50 MG/ML, 1ML IVPush PRN (23:50)
[2017-09-12] MEDS: PROCHLORPERAZINE 5 MG/ML, 2ML IVPush PRN (23:50)
[2017-09-12] MEDS: VANCOMYCIN PMX 1GM/200ML 200 ML IVPB SCH (23:51)
[2017-09-13] MEDS: FENTANYL PF 100 MCG/2ML IVPush PRN ×2 (02:14→08:47)
[2017-09-13 04:30] LABS: MEAN CORPUSCULAR HEMOGLOBIN 28.3 pg (27.0-34.8); MEAN CORPUSCULAR HGB CONC 34.2 g/dL (32.4-35.8); MEAN CORPUSCULAR VOLUME 82.8 fL (80-100); RED BLOOD COUNT 2.76 x10^6/uL (3.82-5.3); RED CELL DISTRIBUTION WIDTH 12.5 % (9.6-15.2)
[2017-09-13 04:33] LABS: ANION GAP 4 mmol/L (5-15); CALCIUM 7.2 mg/dL (8.5-10.1); CHLORIDE 104 mmol/L (98-107); CREATININE 0.21 mg/dL (0.55-1.02); TRIGLYCERIDES 141 mg/dL (50-200)
[2017-09-13] MEDS: MEROPENEM 500 MG in SODIUM CHLORIDE 0.9% 100 ML IV SCH (05:11)
[2017-09-13] MEDS: GUAIFENESIN 100 MG/5 ML, 10ML UDC NG SCH ×4 (05:11→20:06)
[2017-09-13 05:44] LABS: BASOPHILS # (AUTO) 0.03 x10^3/uL (0-0.1); BASOPHILS % (AUTO) 0 % (0-1); EOSINOPHILS # (AUTO) 0.08 x10^3/uL (0-0.4); EOSINOPHILS % (AUTO) 1 % (1-7); LYMPHOCYTES % (AUTO) 11 % (22-44); MD SCAN; MEAN PLATELET VOLUME 7.1 fL (7.4-10.4); MONOCYTES # (AUTO) 0.83 x10^3/uL (0.2-0.8); MONOCYTES % (AUTO) 7 % (2-9); NEUTROPHILS # (AUTO) 10.44 x10^3/uL (1.8-6.8); NEUTROPHILS % (AUTO) 82 % (42-75); PLATELET COUNT 710 x10^3/uL (130-400)
[2017-09-13 06:16] VITALS: BP 120/64
[2017-09-13] MEDS: VANCOMYCIN PMX 1GM/200ML 200 ML IVPB SCH (08:00)
[2017-09-13] MEDS ORDERED: FAMOTIDINE 20 MG TABLET ONE (08:45)
[2017-09-13] MEDS ORDERED: FAMOTIDINE 40 MG/5 ML ORAL SUSP PO SCH (09:00)
[2017-09-13] MEDS: FAMOTIDINE 20 MG TABLET PO SCH ×2 (10:06→20:05)
[2017-09-13] MEDS: ERTAPENEM 1 GM in SODIUM CHLORIDE 0.9% 50 ML IV SCH (10:07)
[2017-09-13] MEDS: ZIPRASIDONE 20MG CAPSULE NG SCH ×2 (10:09→20:05)
[2017-09-13] MEDS: EFAVIRENZ/EMTRICITAB/TENOFOVIR 600MG-200MG-300MG TABLET PO SCH (10:09)
[2017-09-13] MEDS: CHOLESTYRAMINE LIGHT 4GM PACKET PO SCH ×2 (10:09→20:50)
[2017-09-13 11:24] VITALS: BP 107/68
[2017-09-13] MEDS: MORPHINE SULFATE 4 MG/ML, 1ML IVPush PRN ×4 (12:17→23:04)
[2017-09-13 12:36] VITALS: BP 123/71
[2017-09-13] MEDS ORDERED: POTASSIUM CHLORIDE 20 MEQ TAB.ER.PRT PO ONE (19:00)
[2017-09-13 19:40] VITALS: BP 143/89
[2017-09-13] MEDS: ENOXAPARIN 40 MG/0.4 ML SQ SCH (20:06)
[2017-09-13] MEDS: PROCHLORPERAZINE 5 MG/ML, 2ML IVPush PRN (20:06)
[2017-09-13] MEDS: ONDANSETRON ODT 4 MG PO PRN (23:04)
[2017-09-14 02:40] VITALS: BP 116/71
[2017-09-14] MEDS: PROCHLORPERAZINE 5 MG/ML, 2ML IVPush PRN ×3 (02:45→19:54)
[2017-09-14] MEDS: DIPHENHYDRAMINE 50 MG/ML, 1ML IVPush PRN ×2 (02:45→19:54)
[2017-09-14] MEDS: ACETAMINOPHEN 650 MG/20.3 ML UDC PO PRN (03:02)
[2017-09-14] MEDS: MORPHINE SULFATE 4 MG/ML, 1ML IVPush PRN ×5 (03:03→22:12)
[2017-09-14] MEDS: GUAIFENESIN 100 MG/5 ML, 10ML UDC NG SCH ×2 (05:11→12:19)
[2017-09-14 05:13] LABS: MEAN CORPUSCULAR HEMOGLOBIN 28.1 pg (27.0-34.8); MEAN CORPUSCULAR HGB CONC 34.1 g/dL (32.4-35.8); MEAN CORPUSCULAR VOLUME 82.5 fL (80-100); PLATELET COUNT 861 x10^3/uL (130-400); RED BLOOD COUNT 2.68 x10^6/uL (3.82-5.3); RED CELL DISTRIBUTION WIDTH 12.7 % (9.6-15.2)
[2017-09-14 05:22] LABS: ANION GAP 5 mmol/L (5-15); CALCIUM 7.3 mg/dL (8.5-10.1); CHLORIDE 99 mmol/L (98-107)
[2017-09-14 05:25] LABS: CREATININE 0.23 mg/dL (0.55-1.02)
[2017-09-14 05:54] LABS: BASOPHILS # (AUTO) 0.03 x10^3/uL (0-0.1); BASOPHILS % (AUTO) 0 % (0-1); EOSINOPHILS # (AUTO) 0.07 x10^3/uL (0-0.4); EOSINOPHILS % (AUTO) 1 % (1-7); LYMPHOCYTES # (AUTO) 1.59 x10^3/uL (1-3.4); LYMPHOCYTES % (AUTO) 12 % (22-44); MD SCAN; MONOCYTES # (AUTO) 1.02 x10^3/uL (0.2-0.8); MONOCYTES % (AUTO) 8 % (2-9); NEUTROPHILS # (AUTO) 10.84 x10^3/uL (1.8-6.8); NEUTROPHILS % (AUTO) 80 % (42-75)
[2017-09-14 06:48] VITALS: BP 105/59
[2017-09-14] MEDS: ERTAPENEM 1 GM in SODIUM CHLORIDE 0.9% 50 ML IV SCH (08:53)
[2017-09-14] MEDS: FAMOTIDINE 20 MG TABLET PO SCH ×2 (08:54→22:13)
[2017-09-14] MEDS: CHOLESTYRAMINE LIGHT 4GM PACKET PO SCH ×2 (08:54→21:00)
[2017-09-14] MEDS: ZIPRASIDONE 20MG CAPSULE NG SCH ×2 (08:54→22:13)
[2017-09-14] MEDS: EFAVIRENZ/EMTRICITAB/TENOFOVIR 600MG-200MG-300MG TABLET PO SCH (08:59)
[2017-09-14 13:19] VITALS: BP 130/70
[2017-09-14 19:20] VITALS: BP 132/83
[2017-09-14] MEDS: ENOXAPARIN 40 MG/0.4 ML SQ SCH (22:13)
[2017-09-15 01:40] VITALS: BP 118/66
[2017-09-15] MEDS: MORPHINE SULFATE 4 MG/ML, 1ML IVPush PRN ×7 (04:18→23:12)
[2017-09-15 05:34] LABS: BASOPHILS # (AUTO) 0.03 x10^3/uL (0-0.1); BASOPHILS % (AUTO) 0 % (0-1); EOSINOPHILS # (AUTO) 0.11 x10^3/uL (0-0.4); EOSINOPHILS % (AUTO) 1 % (1-7); LYMPHOCYTES # (AUTO) 2.19 x10^3/uL (1-3.4); LYMPHOCYTES % (AUTO) 17 % (22-44); MD NO; MEAN CORPUSCULAR HEMOGLOBIN 28.3 pg (27.0-34.8); MEAN CORPUSCULAR HGB CONC 34.4 g/dL (32.4-35.8); MEAN CORPUSCULAR VOLUME 82.4 fL (80-100); MEAN PLATELET VOLUME 6.7 fL (7.4-10.4); MONOCYTES # (AUTO) 1.15 x10^3/uL (0.2-0.8); MONOCYTES % (AUTO) 9 % (2-9); NEUTROPHILS # (AUTO) 9.21 x10^3/uL (1.8-6.8); NEUTROPHILS % (AUTO) 73 % (42-75); PLATELET COUNT 935 x10^3/uL (130-400); RED BLOOD COUNT 2.85 x10^6/uL (3.82-5.3); RED CELL DISTRIBUTION WIDTH 12.7 % (9.6-15.2)
[2017-09-15 05:43] LABS: CHLORIDE 99 mmol/L (98-107)
[2017-09-15 05:52] LABS: ANION GAP 10 mmol/L (5-15); CALCIUM 7.8 mg/dL (8.5-10.1); CREATININE 0.32 mg/dL (0.55-1.02)
[2017-09-15] MEDS: DIPHENHYDRAMINE 50 MG/ML, 1ML IVPush PRN ×2 (05:54→17:46)
[2017-09-15] MEDS: PROCHLORPERAZINE 5 MG/ML, 2ML IVPush PRN ×2 (05:55→17:36)
[2017-09-15 06:53] VITALS: BP 123/70
[2017-09-15] MEDS: CHOLESTYRAMINE LIGHT 4GM PACKET PO SCH ×2 (09:26→19:59)
[2017-09-15] MEDS: ZIPRASIDONE 20MG CAPSULE NG SCH ×2 (09:26→19:58)
[2017-09-15] MEDS: FAMOTIDINE 20 MG TABLET PO SCH ×2 (09:26→20:08)
[2017-09-15] MEDS: EFAVIRENZ/EMTRICITAB/TENOFOVIR 600MG-200MG-300MG TABLET PO SCH ×2 (09:26→21:00)
[2017-09-15] MEDS: ERTAPENEM 1 GM in SODIUM CHLORIDE 0.9% 50 ML IV SCH (09:41)
[2017-09-15 12:55] VITALS: BP 120/73
[2017-09-15] MEDS: GUAIFENESIN 100 MG/5 ML, 10ML UDC NG PRN (16:31)
[2017-09-15 19:15] VITALS: BP 136/81
[2017-09-15] MEDS: ENOXAPARIN 40 MG/0.4 ML SQ SCH (19:59)
[2017-09-16] MEDS: MORPHINE SULFATE 4 MG/ML, 1ML IVPush PRN ×10 (01:11→23:04)
[2017-09-16 02:20] VITALS: BP 123/74
[2017-09-16] MEDS: PROCHLORPERAZINE 5 MG/ML, 2ML IVPush PRN ×2 (03:14→20:53)
[2017-09-16] MEDS: GUAIFENESIN 100 MG/5 ML, 10ML UDC NG PRN (03:49)
[2017-09-16] MEDS: DIPHENHYDRAMINE 50 MG/ML, 1ML IVPush PRN ×2 (03:49→17:20)
[2017-09-16 05:14] LABS: BASOPHILS # (AUTO) 0.03 x10^3/uL (0-0.1); BASOPHILS % (AUTO) 0 % (0-1); EOSINOPHILS # (AUTO) 0.21 x10^3/uL (0-0.4); EOSINOPHILS % (AUTO) 2 % (1-7); LYMPHOCYTES # (AUTO) 1.81 x10^3/uL (1-3.4); LYMPHOCYTES % (AUTO) 17 % (22-44); MD NO; MEAN CORPUSCULAR HEMOGLOBIN 27.4 pg (27.0-34.8); MEAN CORPUSCULAR HGB CONC 33.2 g/dL (32.4-35.8); MEAN CORPUSCULAR VOLUME 82.5 fL (80-100); MEAN PLATELET VOLUME 6.7 fL (7.4-10.4); MONOCYTES # (AUTO) 0.86 x10^3/uL (0.2-0.8); MONOCYTES % (AUTO) 8 % (2-9); NEUTROPHILS # (AUTO) 7.88 x10^3/uL (1.8-6.8); NEUTROPHILS % (AUTO) 73 % (42-75); PLATELET COUNT 902 x10^3/uL (130-400); RED BLOOD COUNT 3.06 x10^6/uL (3.82-5.3); RED CELL DISTRIBUTION WIDTH 13.2 % (9.6-15.2)
[2017-09-16 05:35] LABS: CHLORIDE 98 mmol/L (98-107)
[2017-09-16 05:39] LABS: ANION GAP 6 mmol/L (5-15); CALCIUM 7.9 mg/dL (8.5-10.1); CREATININE 0.29 mg/dL (0.55-1.02); TRIGLYCERIDES 123 mg/dL (50-200)
[2017-09-16] MEDS: CHOLESTYRAMINE LIGHT 4GM PACKET PO SCH ×2 (07:45→20:53)
[2017-09-16] MEDS: FAMOTIDINE 20 MG TABLET PO SCH ×2 (08:51→20:52)
[2017-09-16] MEDS: ZIPRASIDONE 20MG CAPSULE NG SCH ×2 (08:51→20:52)
[2017-09-16 09:03] VITALS: BP 132/81
[2017-09-16] MEDS: ERTAPENEM 1 GM in SODIUM CHLORIDE 0.9% 50 ML IV SCH (09:15)
[2017-09-16 11:45] LABS: MICROSCOPIC NOT IND
[2017-09-16 11:47] LABS: CULTURE INDICATED? NO
[2017-09-16] MEDS ORDERED: LIDOCAINE 1%, 20ML INFIL ONE (12:00)
[2017-09-16 14:20] VITALS: BP 144/78
[2017-09-16] MEDS ORDERED: ONDANSETRON 2MG/ML, 2ML ONE (17:19)
[2017-09-16] MEDS: ONDANSETRON ODT 4 MG PO PRN (17:20)
[2017-09-16 20:00] VITALS: BP 102/69
[2017-09-16] MEDS: EFAVIRENZ/EMTRICITAB/TENOFOVIR 600MG-200MG-300MG TABLET PO SCH (20:57)
[2017-09-16] MEDS: ENOXAPARIN 40 MG/0.4 ML SQ SCH (21:04)
[2017-09-17] MEDS: GUAIFENESIN 100 MG/5 ML, 10ML UDC NG PRN (01:05)
[2017-09-17] MEDS: MORPHINE SULFATE 4 MG/ML, 1ML IVPush PRN ×9 (01:05→22:40)
[2017-09-17 03:01] VITALS: BP 104/61
[2017-09-17 06:15] LABS: ANION GAP 10 mmol/L (5-15); CALCIUM 7.9 mg/dL (8.5-10.1); CHLORIDE 102 mmol/L (98-107); CREATININE 0.31 mg/dL (0.55-1.02)
[2017-09-17] MEDS ORDERED: ERTA1VIA IV (06:43)
[2017-09-17] MEDS ORDERED: CHOL239. PO (06:43)
[2017-09-17] MEDS ORDERED: ZIPR20CA2 PO (06:43)
[2017-09-17] MEDS ORDERED: FENT50VI IVPush (06:45)
[2017-09-17] MEDS ORDERED: MORP4VIA IVPush (06:45)
[2017-09-17 06:50] VITALS: BP 117/72
[2017-09-17 07:22] LABS: MEAN CORPUSCULAR HEMOGLOBIN 27.6 pg (27.0-34.8); MEAN CORPUSCULAR HGB CONC 33.3 g/dL (32.4-35.8); MEAN CORPUSCULAR VOLUME 82.9 fL (80-100); MEAN PLATELET VOLUME 6.4 fL (7.4-10.4); RED BLOOD COUNT 3.14 x10^6/uL (3.82-5.3); RED CELL DISTRIBUTION WIDTH 13.4 % (9.6-15.2)
[2017-09-17 08:38] LABS: PLATELET COUNT 1088 x10^3/uL (130-400)
[2017-09-17 08:40] LABS: BASOPHILS # (AUTO) 0.04 x10^3/uL (0-0.1); BASOPHILS % (AUTO) 0 % (0-1); EOSINOPHILS # (AUTO) 0.79 x10^3/uL (0-0.4); EOSINOPHILS % (AUTO) 5 % (1-7); LYMPHOCYTES # (AUTO) 2.13 x10^3/uL (1-3.4); LYMPHOCYTES % (AUTO) 15 % (22-44); MD SCAN; MONOCYTES # (AUTO) 0.96 x10^3/uL (0.2-0.8); MONOCYTES % (AUTO) 7 % (2-9); NEUTROPHILS # (AUTO) 10.71 x10^3/uL (1.8-6.8); NEUTROPHILS % (AUTO) 73 % (42-75)
[2017-09-17] MEDS: ERTAPENEM 1 GM in SODIUM CHLORIDE 0.9% 50 ML IV SCH (09:39)
[2017-09-17] MEDS: ZIPRASIDONE 20MG CAPSULE NG SCH ×2 (09:40→21:09)
[2017-09-17] MEDS: FAMOTIDINE 20 MG TABLET PO SCH ×2 (09:41→20:14)
[2017-09-17] MEDS: CHOLESTYRAMINE LIGHT 4GM PACKET PO SCH ×2 (11:07→20:16)
[2017-09-17] MEDS ORDERED: IBUPROFEN 200 MG TABLET PO PRN (12:30)
[2017-09-17 14:00] VITALS: BP 108/72
[2017-09-17] MEDS: SENNA/DOCUSATE TABLET NG PRN (15:37)
[2017-09-17] MEDS: ONDANSETRON ODT 4 MG PO PRN (17:45)
[2017-09-17 18:55] VITALS: BP 110/67
[2017-09-17] MEDS: ENOXAPARIN 40 MG/0.4 ML SQ SCH (20:14)
[2017-09-17] MEDS: EFAVIRENZ/EMTRICITAB/TENOFOVIR 600MG-200MG-300MG TABLET PO SCH (20:15)
[2017-09-18] MEDS: MORPHINE SULFATE 4 MG/ML, 1ML IVPush PRN ×6 (01:14→18:35)
[2017-09-18 01:25] VITALS: BP 100/63
[2017-09-18] MEDS: DIPHENHYDRAMINE 50 MG/ML, 1ML IVPush PRN (04:01)
[2017-09-18 05:36] LABS: ANION GAP 7 mmol/L (5-15); CALCIUM 8.3 mg/dL (8.5-10.1); CHLORIDE 97 mmol/L (98-107)
[2017-09-18 05:39] LABS: CREATININE 0.35 mg/dL (0.55-1.02)
[2017-09-18 05:43] LABS: MEAN CORPUSCULAR HEMOGLOBIN 27.7 pg (27.0-34.8); MEAN CORPUSCULAR HGB CONC 33.4 g/dL (32.4-35.8); MEAN CORPUSCULAR VOLUME 82.9 fL (80-100); RED BLOOD COUNT 3.16 x10^6/uL (3.82-5.3); RED CELL DISTRIBUTION WIDTH 13.1 % (9.6-15.2)
[2017-09-18 06:04] LABS: MEAN PLATELET VOLUME 6.3 fL (7.4-10.4)
[2017-09-18 06:05] LABS: PLATELET COUNT 1117 x10^3/uL (130-400)
[2017-09-18 06:06] LABS: BASOPHILS # (AUTO) 0.05 x10^3/uL (0-0.1); BASOPHILS % (AUTO) 1 % (0-1); EOSINOPHILS # (AUTO) 1.24 x10^3/uL (0-0.4); EOSINOPHILS % (AUTO) 11 % (1-7); LYMPHOCYTES # (AUTO) 1.83 x10^3/uL (1-3.4); LYMPHOCYTES % (AUTO) 16 % (22-44); MD SCAN; MONOCYTES # (AUTO) 0.94 x10^3/uL (0.2-0.8); MONOCYTES % (AUTO) 8 % (2-9); NEUTROPHILS # (AUTO) 7.56 x10^3/uL (1.8-6.8); NEUTROPHILS % (AUTO) 65 % (42-75)
[2017-09-18 07:57] VITALS: BP 106/66
[2017-09-18] MEDS: ERTAPENEM 1 GM in SODIUM CHLORIDE 0.9% 50 ML IV SCH (08:27)
[2017-09-18] MEDS: ZIPRASIDONE 20MG CAPSULE NG SCH ×2 (08:28→21:06)
[2017-09-18] MEDS: CHOLESTYRAMINE LIGHT 4GM PACKET PO SCH ×2 (08:28→21:00)
[2017-09-18] MEDS: FAMOTIDINE 20 MG TABLET PO SCH ×2 (08:28→21:06)
[2017-09-18] MEDS: PROCHLORPERAZINE 5 MG/ML, 2ML IVPush PRN ×2 (13:43→20:08)
[2017-09-18 13:45] VITALS: BP 116/67
[2017-09-18 19:14] VITALS: BP 119/79
[2017-09-18] MEDS: EFAVIRENZ/EMTRICITAB/TENOFOVIR 600MG-200MG-300MG TABLET PO SCH (21:00)
[2017-09-18] MEDS: ENOXAPARIN 40 MG/0.4 ML SQ SCH (21:07)
[2017-09-19 01:49] VITALS: BP 132/81
[2017-09-19] MEDS: MORPHINE SULFATE 4 MG/ML, 1ML IVPush PRN (02:05)
[2017-09-19 05:51] LABS: ANION GAP 11 mmol/L (5-15); CALCIUM 8.5 mg/dL (8.5-10.1); CHLORIDE 100 mmol/L (98-107)
[2017-09-19 05:52] LABS: TRIGLYCERIDES 127 mg/dL (50-200)
[2017-09-19 06:05] LABS: MEAN CORPUSCULAR HEMOGLOBIN 26.7 pg (27.0-34.8); MEAN CORPUSCULAR HGB CONC 32.5 g/dL (32.4-35.8); MEAN CORPUSCULAR VOLUME 82.3 fL (80-100); RED BLOOD COUNT 3.56 x10^6/uL (3.82-5.3); RED CELL DISTRIBUTION WIDTH 12.9 % (9.6-15.2)
[2017-09-19 06:25] LABS: MEAN PLATELET VOLUME 6.8 fL (7.4-10.4)
[2017-09-19 06:27] LABS: PLATELET COUNT 1081 x10^3/uL (130-400)
[2017-09-19 06:31] LABS: BASOPHILS # (AUTO) 0.04 x10^3/uL (0-0.1); BASOPHILS % (AUTO) 0 % (0-1); EOSINOPHILS % (AUTO) 8 % (1-7); LYMPHOCYTES # (AUTO) 2.41 x10^3/uL (1-3.4); LYMPHOCYTES % (AUTO) 17 % (22-44); MD SCAN; MONOCYTES # (AUTO) 0.94 x10^3/uL (0.2-0.8); MONOCYTES % (AUTO) 6 % (2-9); NEUTROPHILS # (AUTO) 10.09 x10^3/uL (1.8-6.8); NEUTROPHILS % (AUTO) 69 % (42-75)
[2017-09-24] MEDS ORDERED: BENZ-17 PO (10:02)
[2017-09-24] MEDS ORDERED: TRAZ50TA18 PO (10:02)
== END 2017-09-19 07:08 | disposition left against medical advice (07) | DRG 853 ==
LOC: ED 19:49 → EDIP 19:50 → 4WST 23:04 → CCU 09-04 15:35 → 4EST 09-13 11:56 → 3NE 09-17 08:03
PROVIDERS: ADMIT Hospitalist; ATTEND Hospitalist
PROC: 5A1955Z Respiratory Ventilation, Greater than 96 Consecutive Hours (ICD-10-PCS; 2017-09-04)
PROC: 0BH17EZ Insertion of Endotracheal Airway into Trachea, Via Natural or Artificial Opening (ICD-10-PCS; 2017-09-04)
PROC: 0BNK4ZZ Release Right Lung, Percutaneous Endoscopic Approach (ICD-10-PCS; principal; 2017-09-04 13:00)
PROC: 0T9B70Z Drainage of Bladder with Drainage Device, Via Natural or Artificial Opening (ICD-10-PCS; 2017-09-10)
DX: A41.9 Sepsis, unspecified organism (principal); J96.01 Acute respiratory failure with hypoxia; J86.9 Pyothorax without fistula; E43 Unspecified severe protein-calorie malnutrition; J15.211 Pneumonia due to Methicillin susceptible Staphylococcus aureus; J15.9 Unspecified bacterial pneumonia; Z99.11 Dependence on respirator [ventilator] status; J90 Pleural effusion, not elsewhere classified; E87.1 Hypo-osmolality and hyponatremia; Z68.1 Body mass index [BMI] 19.9 or less, adult; I47.1 Supraventricular tachycardia; N39.0 Urinary tract infection, site not specified; E87.6 Hypokalemia; I10 Essential (primary) hypertension; R65.20 Severe sepsis without septic shock; D64.9 Anemia, unspecified; F15.10 Other stimulant abuse, uncomplicated; F41.1 Generalized anxiety disorder; I48.91 Unspecified atrial fibrillation; Z87.891 Personal history of nicotine dependence; Z91.19 Patient's noncompliance with other medical treatment and regimen; Z88.6 Allergy status to analgesic agent; Z88.0 Allergy status to penicillin
CPT/HCPCS: 36415; 36600; 71045; 71046; 71250; 71260; 80048; 80053; 80202; 80307; 81001; 81003; 82040; 82803; 83605; 83615; 83735; 84100; 84145; 84478; 84484; 85025; 85610; 85730; 86361; 87015; 87040; 87070; 87075; 87077; 87081; 87086; 87102; 87116; 87147; 87176; 87186; 87205; 87206; 87400; 88305; 93005; 94002; 94003; 94640; 94667; 96365; 96367; 96375; C1729; J0153; J0171; J0456; J0690; J0696; J1335; J1650; J1885; J2185; J2250; J2405; J2543; J2704; J3010; J3370; J3480; J3486; J3490; J7608; J7613; Q0162; Q9967; J0282; J0330; J0780; J1200; J2370; J3475; J7030; J7050; J7060; S0028